=== PATIENT | female | born 1975 | race Caucasian/White ===

== ENCOUNTER 2023-07-03 22:24 | Emergency (ER) | payer OTHER ==
[~2023-07-03] VITALS: Ht 160 cm; Wt 87.0 kg
[~2023-07-03 22:24] MED LIST: AMLO-257 PO; ATOR20TA PO; GABA-1181 PO; HYDR50CA7 PO; LEVO125 PO; MIRT-149 PO
[2023-07-03 22:36] VITALS: TEMP 98.2
[2023-07-04] MEDS ORDERED: SODIUM CHLORIDE 0.9% 1,000 ML IV ONE
[2023-07-04] MEDS ORDERED: SODIUM CHLORIDE 0.9% 100 ML ONE (00:27)
[2023-07-04] MEDS ORDERED: IOHEXOL 350 MG/ML 100 ML VIAL ONE (00:28)
[2023-07-04 00:44] LABS: ANION GAP 5 mmol/L (8-16); CALCIUM, TOTAL 9.4 mg/dL (8.8-10.5); CARBON DIOXIDE 31 mmol/L (22-29); CHLORIDE 104 mmol/L (98-107); CREATININE 0.74 mg/dL (0.60-1.30); GLOMERULAR FILTR. RATE CALC > 60 mL/min (>60); GLUCOSE,RANDOM 110 mg/dL (70-110); POTASSIUM 4.1 mmol/L (3.5-5.1); SODIUM SERUM 140 mmol/L (136-145); UREA NITROGEN, BLOOD 17 mg/dL (7-18)
[2023-07-04 00:52] LABS: ALANINE AMINOTRANSFERASE 56 U/L (12-78); ALBUMIN 3.6 g/dL (3.4-5.0); ALKALINE PHOSPHATASE 115 U/L (46-116); ASPARTATE AMINOTRANSFERASE 30 U/L (15-37); BILIRUBIN,TOTAL 0.1 mg/dL (0.1-1.0); LIPASE 16 U/L (16-77); TOTAL PROTEIN, SERUM 7.5 g/dL (6.4-8.2)
[2023-07-04 00:59] LABS: TROPONIN I-HIGH SENSITIVITY 6 ng/L (<51)
[2023-07-04 02:24] LABS: EOSINOPHILS % (AUTO) 2.7 % (1.0-6.0); LYMPHOCYTES # (AUTO) 2.2 K/uL (1.0-4.8); LYMPHOCYTES % (AUTO) 34.5 % (22.0-44.0); MEAN CORPUSCULAR HEMOGLOBIN 33.6 pg (26.0-34.0); MEAN CORPUSCULAR HGB CONC 34.4 G/dL (31.0-37.0); MEAN CORPUSCULAR VOLUME 98 fL (80-100); MONOCYTES # (AUTO) 0.7 K/uL (0.1-1.0); MONOCYTES % (AUTO) 10.8 % (2.0-9.0); NEUTROPHILS # (AUTO) 3.3 K/uL (1.8-7.7); PLATELET COUNT (AUTO) 277 K/uL (150-450); RED BLOOD CELL COUNT(AUTO) 3.58 MIL/uL (4.00-5.20); RED CELL DISTRIBUTION WIDTH 15.1 % (11.5-14.5); WHITE BLOOD COUNT (AUTO) 6.4 K/uL (4.5-11.0)
[2023-07-04 02:25] VITALS: BP 156/107; PULSE 65; RESP 20
[2023-07-04 03:25] LABS: COVID AG,FIA SOURCE NASAL SWAB
[2023-07-04 03:33] LABS: PROTHROMBIN TIME 10.1 SEC (9.4-11.6)
[2023-07-04 03:48] LABS: SARS-COV2 (COVID) ANTIGEN,FIA Negative (Negative)
== END 2023-07-04 04:10 | disposition left against medical advice (07) ==
LOC: EMS 22:25
DX: S49.91XA Unspecified injury of right shoulder and upper arm, initial encounter (principal); R10.84 Generalized abdominal pain; E78.00 Pure hypercholesterolemia, unspecified; I10 Essential (primary) hypertension; E03.9 Hypothyroidism, unspecified; F12.90 Cannabis use, unspecified, uncomplicated; Z98.890 Other specified postprocedural states; Z88.2 Allergy status to sulfonamides; Z88.8 Allergy status to other drugs, medicaments and biological substances; Z20.822 Contact with and (suspected) exposure to COVID-19; W22.8XXA Striking against or struck by other objects, initial encounter; Y93.89 Activity, other specified; Y92.89 Other specified places as the place of occurrence of the external cause; Y99.8 Other external cause status
CPT/HCPCS: 99285; 87426; 80053; 83690; 83880; 84484; 85025; 85610; 85730; 36415; 93005; 70450; 96360; 71045; 73030; 72125; 74177; Q9967; J7030; J7050

== ENCOUNTER 2023-07-28 01:50 | Emergency (ER) | payer OTHER ==
[~2023-07-28] VITALS: Ht 160 cm; Wt 81.8 kg
[2023-07-28 02:01] VITALS: TEMP 98
[2023-07-28] MEDS ORDERED: MORPHINE SULFATE 2 MG/ML SYRINGE IVP ONE (02:15)
[2023-07-28] MEDS ORDERED: SODIUM CHLORIDE 0.9% 1,000 ML IV ONE (02:15)
[2023-07-28] MEDS ORDERED: ONDANSETRON HCL 4 MG/2 ML VIAL IVP ONE (02:15)
[2023-07-28] MEDS ORDERED: OxyCODONE HCL 5 MG IR TABLET PO ONE (04:45)
[2023-07-28 04:55] LABS: BASOPHILS % (AUTO) 1.4 % (0.0-2.0); EOSINOPHILS % (AUTO) 4.7 % (1.0-6.0); HEMATOCRIT 36.5 % (36-46); HEMOGLOBIN 12.6 g/dL (12.0-16.0); LYMPHOCYTES # (AUTO) 2.1 K/uL (1.0-4.8); LYMPHOCYTES % (AUTO) 28.1 % (22.0-44.0); MEAN CORPUSCULAR HEMOGLOBIN 33.9 pg (26.0-34.0); MEAN CORPUSCULAR HGB CONC 34.6 G/dL (31.0-37.0); MEAN CORPUSCULAR VOLUME 98 fL (80-100); MONOCYTES # (AUTO) 0.8 K/uL (0.1-1.0); MONOCYTES % (AUTO) 10.6 % (2.0-9.0); NEUTROPHILS # (AUTO) 4.1 K/uL (1.8-7.7); NEUTROPHILS % (AUTO) 55.2 % (40.0-70.0); PLATELET COUNT (AUTO) 308 K/uL (150-450); RED BLOOD CELL COUNT(AUTO) 3.72 MIL/uL (4.00-5.20); RED CELL DISTRIBUTION WIDTH 13.6 % (11.5-14.5); WHITE BLOOD COUNT (AUTO) 7.4 K/uL (4.5-11.0)
[2023-07-28 05:03] LABS: ANION GAP 7 mmol/L (8-16); CALCIUM, TOTAL 9.4 mg/dL (8.8-10.5); CARBON DIOXIDE 28 mmol/L (22-29); CHLORIDE 103 mmol/L (98-107); CREATININE 0.65 mg/dL (0.60-1.30); GLOMERULAR FILTR. RATE CALC > 60 mL/min (>60); GLUCOSE,RANDOM 105 mg/dL (70-110); SODIUM SERUM 138 mmol/L (136-145); UREA NITROGEN, BLOOD 18 mg/dL (7-18)
[2023-07-28 05:10] LABS: ALANINE AMINOTRANSFERASE 77 U/L (12-78); ALBUMIN 3.9 g/dL (3.4-5.0); ALKALINE PHOSPHATASE 114 U/L (46-116); ASPARTATE AMINOTRANSFERASE 40 U/L (15-37); BILIRUBIN,TOTAL 0.2 mg/dL (0.1-1.0); CREATINE KINASE, TOTAL ONLY 45 U/L (26-192); LIPASE 17 U/L (16-77); TOTAL PROTEIN, SERUM 7.9 g/dL (6.4-8.2); TROPONIN I-HIGH SENSITIVITY 6 ng/L (<51)
[2023-07-28 05:17] LABS: B-TYPE NATRIURETIC PEPTIDE 8 pg/mL (0-100)
[2023-07-28 06:04] LABS: APPEARANCE,URINE HAZY (CLEAR); BILIRUBIN,URINE NEGATIVE (NEGATIVE); COLOR,URINE LIGHT YELLOW (YELLOW); GLUCOSE, URINE (UA) NEGATIVE (NEGATIVE); KETONES,URINE NEGATIVE (NEGATIVE); LEUKOCYTE ESTERASE ,URINE LARGE (NEGATIVE); NITRATE,URINE NEGATIVE (NEGATIVE); OCCULT BLOOD,URINE NEGATIVE (NEGATIVE); PH,URINE 6.5 (5.0-8.0); PROTEIN,URINE NEGATIVE (NEGATIVE); SPECIFIC GRAVITIY, URINE 1.018 (1.003-1.030); UROBILINOGEN,URINE <=1.0 mg/dL (<=1.0)
[2023-07-28] MEDS ORDERED: SODIUM CHLORIDE 0.9% 100 ML ONE (06:10)
[2023-07-28 06:13] LABS: RBC,URINE None Seen /HPF (0-2)
[2023-07-28 06:14] LABS: BACTERIA,URINE Few /HPF (None Seen); SQUAMOUS EPITHELIAL CELL,UR Many /LPF (None Seen)
[2023-07-28] MEDS ORDERED: CEPHALEXIN MONOHYDRATE 500 MG CAPSULE PO ONE (07:30)
[2023-07-28 07:46] VITALS: BP 122/55; PULSE 86; RESP 18
== END 2023-07-28 07:55 ==
LOC: EMS 01:51
DX: N39.0 Urinary tract infection, site not specified (principal); K59.00 Constipation, unspecified; E78.00 Pure hypercholesterolemia, unspecified; I10 Essential (primary) hypertension; E03.9 Hypothyroidism, unspecified; F12.90 Cannabis use, unspecified, uncomplicated; Z98.890 Other specified postprocedural states; Z88.2 Allergy status to sulfonamides
CPT/HCPCS: 99285; 74177; 96374; 71045; 96361; 96375; 80053; 81001; 82550; 83690; 83880; 84484; 84703; 85025; 36415; 87086; 87186; 93005; J2270; J2405; J7030; J7050

== ENCOUNTER 2023-09-10 20:42 | Inpatient (IN) | payer OTHER ==
[~2023-09-10] VITALS: Ht 160 cm; Wt 90.0 kg
[2023-09-10 21:13] LABS: BASOPHILS % (AUTO) 2.1 % (0.0-2.0); EOSINOPHILS % (AUTO) 2.7 % (1.0-6.0); HEMATOCRIT 38.4 % (36-46); HEMOGLOBIN 13.3 g/dL (12.0-16.0); LYMPHOCYTES # (AUTO) 2.5 K/uL (1.0-4.8); LYMPHOCYTES % (AUTO) 27.7 % (22.0-44.0); MEAN CORPUSCULAR HEMOGLOBIN 33.3 pg (26.0-34.0); MEAN CORPUSCULAR HGB CONC 34.5 G/dL (31.0-37.0); MEAN CORPUSCULAR VOLUME 97 fL (80-100); MONOCYTES # (AUTO) 0.8 K/uL (0.1-1.0); MONOCYTES % (AUTO) 8.4 % (2.0-9.0); NEUTROPHILS # (AUTO) 5.4 K/uL (1.8-7.7); NEUTROPHILS % (AUTO) 59.1 % (40.0-70.0); PLATELET COUNT (AUTO) 296 K/uL (150-450); RED BLOOD CELL COUNT(AUTO) 3.98 MIL/uL (4.00-5.20); RED CELL DISTRIBUTION WIDTH 12.3 % (11.5-14.5); WHITE BLOOD COUNT (AUTO) 9.1 K/uL (4.5-11.0)
[2023-09-10 21:16] LABS: ANION GAP 13 mmol/L (8-16); CALCIUM, TOTAL 9.6 mg/dL (8.8-10.5); CARBON DIOXIDE 25 mmol/L (22-29); CHLORIDE 100 mmol/L (98-107); CREATININE 0.64 mg/dL (0.60-1.30); GLOMERULAR FILTR. RATE CALC > 60 mL/min (>60); GLUCOSE,RANDOM 136 mg/dL (70-110); SODIUM SERUM 138 mmol/L (136-145); UREA NITROGEN, BLOOD 17 mg/dL (7-18)
[2023-09-10 21:27] LABS: ALBUMIN 4.2 g/dL (3.4-5.0); ALKALINE PHOSPHATASE 136 U/L (46-116); ASPARTATE AMINOTRANSFERASE 21 U/L (15-37); BILIRUBIN,TOTAL 0.2 mg/dL (0.1-1.0); HCG,QUANTITATIVE 6 mIU/mL (0-6); LIPASE 16 U/L (16-77); TOTAL PROTEIN, SERUM 7.9 g/dL (6.4-8.2)
[2023-09-10 21:51] LABS: ALANINE AMINOTRANSFERASE 32 U/L (12-78)
[2023-09-10] MEDS: HYDROmorphone HCL 2 MG/ML SYRINGE IVP ONE (22:14)
[2023-09-10] MEDS: SODIUM CHLORIDE 0.9% 1,000 ML IV ONE (22:14)
[2023-09-10] MEDS: METOCLOPRAMIDE HCL 5 MG/ML 2 ML VIAL IVP ONE (22:14)
[2023-09-10 22:34] LABS: APPEARANCE,URINE HAZY (CLEAR); BILIRUBIN,URINE NEGATIVE (NEGATIVE); COLOR,URINE YELLOW (YELLOW); GLUCOSE, URINE (UA) NEGATIVE (NEGATIVE); KETONES,URINE NEGATIVE (NEGATIVE); LEUKOCYTE ESTERASE ,URINE MODERATE (NEGATIVE); NITRATE,URINE NEGATIVE (NEGATIVE); OCCULT BLOOD,URINE NEGATIVE (NEGATIVE); PROTEIN,URINE TRACE mg/dL (NEGATIVE); SPECIFIC GRAVITIY, URINE 1.024 (1.003-1.030); UROBILINOGEN,URINE <=1.0 mg/dL (<=1.0)
[2023-09-10] MEDS ORDERED: SODIUM CHLORIDE 0.9% 100 ML ONE (22:55)
[2023-09-10] MEDS ORDERED: IOHEXOL 350 MG/ML 100 ML VIAL ONE (22:55)
[2023-09-10 23:07] LABS: TROPONIN I-HIGH SENSITIVITY 4 ng/L (<51)
[2023-09-10 23:27] LABS: BACTERIA,URINE Moderate /HPF (None Seen); RBC,URINE None Seen /HPF (0-2); SQUAMOUS EPITHELIAL CELL,UR Many /LPF (None Seen)
[2023-09-11] MEDS: CefTRIAXone 1 GM/DEXTROSE 50 ML IV ONE (00:48)
[2023-09-11 01:08] LABS: LACTIC ACID 1.3 mmol/L (0.4-2.0)
[2023-09-11] MEDS: SODIUM PHOSPHATE,MONO-DIBASIC 133 ML ENEMA PR ONE (02:11)
[2023-09-11] MEDS: METOCLOPRAMIDE HCL 5 MG/ML 2 ML VIAL IVP ONE (06:30)
[2023-09-11] MEDS: MORPHINE SULFATE 2 MG/ML SYRINGE IVP ONE (09:28)
[2023-09-11] MEDS: AmLODIPine BESYLATE 5 MG TABLET PO SCH (10:00)
[2023-09-11 11:22] LABS: THYROID STIMULATING HORMONE 44.08 uIU/mL (0.36-3.74)
[2023-09-11 13:34] LABS: COVID AG,FIA SOURCE NASAL SWAB
[2023-09-11 13:57] LABS: SARS-COV2 (COVID) ANTIGEN,FIA Negative (Negative)
[2023-09-11] MEDS: ONDANSETRON HCL 4 MG/2 ML VIAL IVP PRN (15:01)
[2023-09-11 19:33] VITALS: BP 129/78; PULSE 60; RESP 19; TEMP 98
[2023-09-11] MEDS: VANCOMYCIN HCL 1.5 GM in DEXTROSE 5%-WATER 250 ML IV SCH (20:00)
[2023-09-11] MEDS ORDERED: SODIUM CHLORIDE 0.9% 500 ML IV ONE (20:44)
[2023-09-11] MEDS: GABAPENTIN 300 MG CAPSULE PO SCH (21:34)
[2023-09-11] MEDS: ACETAMINOPHEN 325 MG TABLET PO PRN (21:34)
[2023-09-11] MEDS: DOCUSATE SODIUM 100 MG CAPSULE PO SCH (21:34)
[2023-09-11] MEDS: FAMOTIDINE 20 MG TABLET PO SCH (21:34)
[2023-09-12] MEDS: CefTRIAXone 1 GM/DEXTROSE 50 ML IV SCH (01:40)
[2023-09-12 03:25] VITALS: BP 95/62; PULSE 60; RESP 18; TEMP 97.9
[2023-09-12 08:11] VITALS: BP 99/66; PULSE 76; RESP 18; TEMP 98
[2023-09-12 10:46] LABS: ANION GAP 10 mmol/L (8-16); CALCIUM, TOTAL 9.4 mg/dL (8.8-10.5); CARBON DIOXIDE 28 mmol/L (22-29); CHLORIDE 102 mmol/L (98-107); CREATININE 0.81 mg/dL (0.60-1.30); GLOMERULAR FILTR. RATE CALC > 60 mL/min (>60); GLUCOSE,RANDOM 129 mg/dL (70-110); POTASSIUM 4.3 mmol/L (3.5-5.1); SODIUM SERUM 140 mmol/L (136-145); UREA NITROGEN, BLOOD 18 mg/dL (7-18)
[2023-09-12] MEDS: HYDROCODONE/ACETAMINOPHEN 5-325 MG TABLET PO PRN (12:06)
[2023-09-12 20:30] VITALS: BP 107/76; PULSE 67; RESP 18; TEMP 97.9
[2023-09-13] VITALS (7 sets, daily range): BP systolic 103–175; BP diastolic 68–99; PULSE 79–103; RESP 18–20; TEMP 97.6–98.3; O2SAT 94–99
[2023-09-13] MEDS: MORPHINE SULFATE 2 MG/ML SYRINGE IVP ONE (00:15)
[2023-09-13 07:05] LABS: ANION GAP 8 mmol/L (8-16); CALCIUM, TOTAL 9.7 mg/dL (8.8-10.5); CARBON DIOXIDE 30 mmol/L (22-29); CHLORIDE 101 mmol/L (98-107); GLOMERULAR FILTR. RATE CALC > 60 mL/min (>60); GLUCOSE,RANDOM 99 mg/dL (70-110); POTASSIUM 4.1 mmol/L (3.5-5.1); SODIUM SERUM 139 mmol/L (136-145); UREA NITROGEN, BLOOD 17 mg/dL (7-18)
[2023-09-13 09:06] LABS: BASOPHILS % (AUTO) 0.8 % (0.0-2.0); EOSINOPHILS % (AUTO) 2.5 % (1.0-6.0); HEMATOCRIT 38.2 % (36-46); LYMPHOCYTES % (AUTO) 20.3 % (22.0-44.0); MEAN CORPUSCULAR HEMOGLOBIN 33.2 pg (26.0-34.0); MEAN CORPUSCULAR VOLUME 98 fL (80-100); MONOCYTES % (AUTO) 10.1 % (2.0-9.0); NEUTROPHILS # (AUTO) 6.5 K/uL (1.8-7.7); NEUTROPHILS % (AUTO) 66.3 % (40.0-70.0); PLATELET COUNT (AUTO) 299 K/uL (150-450); RED BLOOD CELL COUNT(AUTO) 3.92 MIL/uL (4.00-5.20); RED CELL DISTRIBUTION WIDTH 12.1 % (11.5-14.5); WHITE BLOOD COUNT (AUTO) 9.8 K/uL (4.5-11.0)
[2023-09-13] MEDS: SODIUM CHLORIDE 0.9% 1,000 ML IV SCH (09:36)
[2023-09-13] MEDS: LEVOTHYROXINE SODIUM 150 MCG TABLET PO SCH (10:52)
[2023-09-14 07:58] VITALS: BP 102/55; PULSE 65; RESP 18; TEMP 98
[2023-09-14 12:20] LABS: ANION GAP 7 mmol/L (8-16); CARBON DIOXIDE 29 mmol/L (22-29); CHLORIDE 102 mmol/L (98-107); CREATININE 0.66 mg/dL (0.60-1.30); GLOMERULAR FILTR. RATE CALC > 60 mL/min (>60); GLUCOSE,RANDOM 128 mg/dL (70-110); POTASSIUM 3.7 mmol/L (3.5-5.1); SODIUM SERUM 138 mmol/L (136-145); UREA NITROGEN, BLOOD 15 mg/dL (7-18); VANCOMYCIN,RANDOM 33.4 mcg/mL (25.0-50.0)
[2023-09-14 15:37] VITALS: BP 111/54; PULSE 70; RESP 18; TEMP 98.2
[2023-09-14 19:34] VITALS: BP 104/69; PULSE 74; RESP 18; TEMP 98.1
[2023-09-14] MEDS: MAGNESIUM HYDROXIDE SUSPENSION 30 ML UDCUP PO PRN (20:20)
[2023-09-15 02:18] VITALS: BP 122/54; PULSE 84; RESP 18; TEMP 98.1
[2023-09-15 07:46] LABS: ANION GAP 8 mmol/L (8-16); CALCIUM, TOTAL 9.3 mg/dL (8.8-10.5); CARBON DIOXIDE 29 mmol/L (22-29); CHLORIDE 102 mmol/L (98-107); CREATININE 0.71 mg/dL (0.60-1.30); GLOMERULAR FILTR. RATE CALC > 60 mL/min (>60); GLUCOSE,RANDOM 98 mg/dL (70-110); POTASSIUM 4.1 mmol/L (3.5-5.1); SODIUM SERUM 139 mmol/L (136-145); UREA NITROGEN, BLOOD 15 mg/dL (7-18); VANCOMYCIN,RANDOM 19.8 mcg/mL (25.0-50.0)
[2023-09-15 08:02] VITALS: BP 145/104; PULSE 74; RESP 18; TEMP 98
[2023-09-15] MEDS: BISACODYL 10 MG RECTAL RECTAL SUPPOSITORY PR PRN (12:16)
[2023-09-15] MEDS: LamoTRIgine 25 MG TABLET PO SCH (20:16)
[2023-09-15] MEDS: LevETIRAcetam 250 MG TABLET PO SCH (20:16)
[2023-09-15] MEDS: VANCOMYCIN HCL 1.25 GM in DEXTROSE 5%-WATER 250 ML IV SCH (20:17)
[2023-09-15 22:29] VITALS: BP 121/67; PULSE 70; RESP 18; TEMP 98
[2023-09-16 04:42] VITALS: BP 95/64; PULSE 66; RESP 18; TEMP 97.8
[2023-09-16 07:29] LABS: ANION GAP 8 mmol/L (8-16); CALCIUM, TOTAL 9.3 mg/dL (8.8-10.5); CARBON DIOXIDE 30 mmol/L (22-29); CHLORIDE 101 mmol/L (98-107); CREATININE 0.73 mg/dL (0.60-1.30); GLOMERULAR FILTR. RATE CALC > 60 mL/min (>60); GLUCOSE,RANDOM 100 mg/dL (70-110); POTASSIUM 4.3 mmol/L (3.5-5.1); SODIUM SERUM 139 mmol/L (136-145); UREA NITROGEN, BLOOD 18 mg/dL (7-18)
[2023-09-16 08:25] VITALS: BP 99/71; PULSE 60; RESP 18; TEMP 98
[2023-09-16] MEDS: ONDANSETRON HCL 4 MG/2 ML VIAL IVP ONE (12:47)
[2023-09-16 20:07] VITALS: BP 117/56; PULSE 73; RESP 20; TEMP 98.1
[2023-09-16] MEDS: ZOLPIDEM TARTRATE 5 MG TABLET PO PRN (22:22)
[2023-09-17 04:06] VITALS: BP 110/51; PULSE 66; RESP 20; TEMP 97.5
[2023-09-17 07:28] LABS: ANION GAP 7 mmol/L (8-16); CALCIUM, TOTAL 9.4 mg/dL (8.8-10.5); CARBON DIOXIDE 28 mmol/L (22-29); CHLORIDE 103 mmol/L (98-107); CREATININE 0.73 mg/dL (0.60-1.30); GLOMERULAR FILTR. RATE CALC > 60 mL/min (>60); GLUCOSE,RANDOM 103 mg/dL (70-110); SODIUM SERUM 138 mmol/L (136-145); UREA NITROGEN, BLOOD 15 mg/dL (7-18)
[2023-09-17] MEDS: LEVOFLOXACIN 500 MG TABLET PO SCH (08:36)
[2023-09-17 09:28] VITALS: BP 100/39; PULSE 69; RESP 20; TEMP 97.9
[2023-09-17] MEDS ORDERED: DOCU-385 PO (10:48)
[2023-09-17] MEDS ORDERED: FAMO20 PO (10:49)
[2023-09-17] MEDS ORDERED: LEVO-72 PO (10:51)
[2023-09-17] MEDS ORDERED: LAMO25TA36 PO (10:55)
[2023-09-17] MEDS ORDERED: LEVE250T4 PO (10:56)
[2023-09-17] MEDS ORDERED: ACET-2247 PO (10:57)
[2023-09-17] MEDS ORDERED: MAGN-169 PO (10:57)
[2023-09-17] MEDS ORDERED: ONDA-104 PO (10:58)
== END 2023-09-17 14:30 | disposition home or self-care (01) | DRG 690 ==
LOC: EMS 20:43 → AHU 09-11 06:24 → 6S 09-11 16:36
PROVIDERS: ADMIT Internal Medicine; ATTEND Internal Medicine
DX: N39.0 Urinary tract infection, site not specified (principal); K50.90 Crohn's disease, unspecified, without complications; R78.81 Bacteremia; I10 Essential (primary) hypertension; E66.9 Obesity, unspecified; E03.9 Hypothyroidism, unspecified; G40.909 Epilepsy, unspecified, not intractable, without status epilepticus; Z20.822 Contact with and (suspected) exposure to COVID-19; E78.00 Pure hypercholesterolemia, unspecified; Z88.8 Allergy status to other drugs, medicaments and biological substances; Z68.35 Body mass index [BMI] 35.0-35.9, adult
CPT/HCPCS: 36245; 36569; 70450; 72125; 74022; 74177; 76937; 80048; 80053; 80202; 81001; 83605; 83690; 84443; 84484; 84702; 85025; 87040; 87077; 87086; 87186; 87205; 93005; 99285; J0696; J1170; J2270; J2405; J2765; J3370; J7030; J7040; J7050; J7060; Q9967

== ENCOUNTER 2024-04-08 15:56 | Emergency (ER) | payer OTHER ==
[~2024-04-08] VITALS: Ht 160 cm; Wt 81.8 kg
[2024-04-08 17:25] VITALS: TEMP 98.8
[2024-04-08 17:30] VITALS: BP 107/63; PULSE 88; RESP 20; O2SAT 96
[2024-04-08] MEDS ORDERED: ONDANSETRON HCL 4 MG/2 ML VIAL IVP ONE (19:15)
[2024-04-08] MEDS ORDERED: SODIUM CHLORIDE 0.9% 1,000 ML IV ONE (19:15)
== END 2024-04-08 20:51 | disposition left against medical advice (07) ==
LOC: EMS 15:56
DX: R31.9 Hematuria, unspecified (principal); R11.2 Nausea with vomiting, unspecified; E78.00 Pure hypercholesterolemia, unspecified; I10 Essential (primary) hypertension; E03.9 Hypothyroidism, unspecified; F17.210 Nicotine dependence, cigarettes, uncomplicated; F12.90 Cannabis use, unspecified, uncomplicated; Z98.890 Other specified postprocedural states; Z91.013 Allergy to seafood; Z88.2 Allergy status to sulfonamides; Z88.8 Allergy status to other drugs, medicaments and biological substances
CPT/HCPCS: 99281; J2405; J7030

== ENCOUNTER 2024-05-18 18:25 | Emergency (ER) | payer OTHER ==
[~2024-05-18] VITALS: Ht 160 cm; Wt 68.2 kg
[2024-05-18 19:07] VITALS: TEMP 98.5
[2024-05-18 19:35] LABS: GLUCOMETER DEV NAME(LOC) ERT.6; GLUCOSE,POINT OF CARE 132 MG/DL (70-110)
[2024-05-18 19:54] LABS: BASOPHILS % (AUTO) 1.2 % (0.0-2.0); EOSINOPHILS % (AUTO) 0.8 % (1.0-6.0); HEMATOCRIT 31.8 % (36-46); HEMOGLOBIN 10.9 g/dL (12.0-16.0); LYMPHOCYTES # (AUTO) 2.1 K/uL (1.0-4.8); LYMPHOCYTES % (AUTO) 33.2 % (22.0-44.0); MEAN CORPUSCULAR HGB CONC 34.3 G/dL (31.0-37.0); MEAN CORPUSCULAR VOLUME 96 fL (80-100); MONOCYTES # (AUTO) 0.8 K/uL (0.1-1.0); NEUTROPHILS # (AUTO) 3.4 K/uL (1.8-7.7); NEUTROPHILS % (AUTO) 52.8 % (40.0-70.0); PLATELET COUNT (AUTO) 285 K/uL (150-450); RED BLOOD CELL COUNT(AUTO) 3.31 MIL/uL (4.00-5.20); RED CELL DISTRIBUTION WIDTH 12.3 % (11.5-14.5); WHITE BLOOD COUNT (AUTO) 6.4 K/uL (4.5-11.0)
[2024-05-18 20:03] LABS: ANION GAP 9 mmol/L (8-16); CARBON DIOXIDE 25 mmol/L (22-29); CHLORIDE 104 mmol/L (98-107); CREATININE 0.64 mg/dL (0.60-1.30); GLOMERULAR FILTR. RATE CALC > 60 mL/min (>60); GLUCOSE,RANDOM 128 mg/dL (70-110); POTASSIUM 3.9 mmol/L (3.5-5.1); SODIUM SERUM 138 mmol/L (136-145); UREA NITROGEN, BLOOD 18 mg/dL (7-18)
[2024-05-18 20:08] LABS: ALANINE AMINOTRANSFERASE 20 U/L (12-78); ALBUMIN 3.4 g/dL (3.4-5.0); ALKALINE PHOSPHATASE 90 U/L (46-116); ASPARTATE AMINOTRANSFERASE 14 U/L (15-37); BILIRUBIN,TOTAL 0.2 mg/dL (0.1-1.0)
[2024-05-18] MEDS: ACETAMINOPHEN 325 MG TABLET PO ONE (20:48)
[2024-05-18] MEDS ORDERED: AMOX500C2 PO (20:49)
[2024-05-18] MEDS ORDERED: ASPI-1590 PO (20:49)
[2024-05-18] MEDS ORDERED: LEVE250T81 PO (20:49)
[2024-05-18] MEDS ORDERED: RISP0.5T80 PO (20:49)
[2024-05-18] MEDS ORDERED: LEVO125 PO (20:49)
[2024-05-18 21:00] VITALS: BP 112/83; PULSE 84; RESP 18; O2SAT 98
== END 2024-05-18 21:22 | disposition home or self-care (01) ==
LOC: EMS 18:25
DX: G43.909 Migraine, unspecified, not intractable, without status migrainosus (principal); F12.90 Cannabis use, unspecified, uncomplicated; I10 Essential (primary) hypertension; E03.9 Hypothyroidism, unspecified; E78.00 Pure hypercholesterolemia, unspecified; Z88.2 Allergy status to sulfonamides
CPT/HCPCS: 70450; 80053; 82962; 85025; 99284

== ENCOUNTER 2025-07-23 21:18 | Emergency (ER) | payer OTHER ==
[~2025-07-23] VITALS: Ht 160 cm; Wt 72.7 kg
[~2025-07-23 21:18] MED LIST changes: -AMLO-257 PO; +AMOX500C2 PO; +ASPI-1590 PO; -ATOR20TA PO; -GABA-1181 PO; -HYDR50CA7 PO; +LEVE250T81 PO; -MIRT-149 PO; +RISP0.5T80 PO
[2025-07-23 21:32] VITALS: TEMP 97.9
[2025-07-24 03:30] VITALS: BP 124/76; PULSE 88; RESP 18; O2SAT 98
[2025-07-24] MEDS: ONDANSETRON HCL 4 MG/2 ML VIAL IVP ONE (03:30)
[2025-07-24] MEDS: FentaNYL CITRATE PF 100 MCG/2 ML VIAL IVP ONE (03:30)
[2025-07-24 03:50] LABS: PLATELET COUNT (AUTO) 277 K/uL (150-450); RED BLOOD CELL COUNT(AUTO) 3.46 MIL/uL (4.00-5.20); RED CELL DISTRIBUTION WIDTH 14.9 % (11.5-14.5); WHITE BLOOD COUNT (AUTO) 6.0 K/uL (4.5-11.0)
[2025-07-24 03:58] LABS: CALCIUM, TOTAL 9.0 mg/dL (8.8-10.5); CREATININE 0.76 mg/dL (0.60-1.30); GLOMERULAR FILTR. RATE CALC > 60 mL/min (>60); GLUCOSE,RANDOM 111 mg/dL (70-110); SODIUM SERUM 140 mmol/L (136-145); UREA NITROGEN, BLOOD 13 mg/dL (7-18)
[2025-07-24 04:04] LABS: ASPARTATE AMINOTRANSFERASE 14.0 U/L (15-37); TOTAL PROTEIN, SERUM 7.0 g/dL (6.4-8.2)
[2025-07-24 04:07] LABS: TROPONIN I-HIGH SENSITIVITY 4 ng/L (<51)
[2025-07-24 04:17] LABS: APPEARANCE,URINE CLEAR (CLEAR); GLUCOSE, URINE (UA) NEGATIVE (NEGATIVE); LEUKOCYTE ESTERASE ,URINE SMALL (NEGATIVE); NITRATE,URINE NEGATIVE (NEGATIVE); OCCULT BLOOD,URINE NEGATIVE (NEGATIVE); SPECIFIC GRAVITIY, URINE 1.019 (1.003-1.030)
[2025-07-24 04:34] LABS: SQUAMOUS EPITHELIAL CELL,UR Few /LPF (None Seen)
== END 2025-07-24 06:59 | disposition home or self-care (01) ==
LOC: EMS 21:18
DX: K59.00 Constipation, unspecified (principal); E78.00 Pure hypercholesterolemia, unspecified; E03.9 Hypothyroidism, unspecified; F12.90 Cannabis use, unspecified, uncomplicated; I10 Essential (primary) hypertension; K50.90 Crohn's disease, unspecified, without complications; F17.210 Nicotine dependence, cigarettes, uncomplicated; Z91.013 Allergy to seafood; Z88.6 Allergy status to analgesic agent; Z88.2 Allergy status to sulfonamides; Z79.899 Other long term (current) drug therapy; Z79.82 Long term (current) use of aspirin
CPT/HCPCS: 99285; 80048; 80076; 81001; 83690; 84484; 85025; 36415; 93005; 74176; 96374; 96375; J3010; J2405